=== PATIENT | female | born 1945 ===

== ENCOUNTER 2020-09-24 11:15 | Inpatient (IN) | payer OTHER ==
[~2020-09-24] VITALS: Ht 165.1 cm; Wt 71.7 kg
[2020-09-24] MEDS ORDERED: ATACAND HCT 321 EAC1 PO (15:29)
[2020-09-24] MEDS ORDERED: METOPROLOL PO (15:30)
[2020-10-02] MEDS ORDERED: METOPROLOL SUCC25 MG (08:20)
[2020-10-02] MEDS ORDERED: SIMVASTATIN20 MG (08:20)
[2020-10-02] MEDS ORDERED: ALENDRONATE SOD70 MG (08:20)
== END 2020-10-02 12:02 | DRG 741 ==
LOC: O/R 10-01 07:25 → SURH 10-01 11:15 → SURG 10-01 16:17 → SURH 10-01 17:00 → OB/GYN 10-01 17:31
PROVIDERS: ADMIT Obstetrics & Gynecology Gynecologic Oncology; ATTEND Obstetrics & Gynecology Gynecologic Oncology
PROC: 0UT2FZZ Resection of Bilateral Ovaries, Via Natural or Artificial Opening With Percutaneous Endoscopic Assistance (ICD-10-PCS; 2020-10-01)
PROC: 0UT7FZZ Resection of Bilateral Fallopian Tubes, Via Natural or Artificial Opening With Percutaneous Endoscopic Assistance (ICD-10-PCS; 2020-10-01)
PROC: 07BC4ZZ Excision of Pelvis Lymphatic, Percutaneous Endoscopic Approach (ICD-10-PCS; 2020-10-01)
PROC: 0UT9FZZ Resection of Uterus, Via Natural or Artificial Opening With Percutaneous Endoscopic Assistance (ICD-10-PCS; principal; 2020-10-01 17:00)
DX: C54.1 Malignant neoplasm of endometrium (principal); I10 Essential (primary) hypertension